=== PATIENT | female | born 2000 | race Caucasian/White ===

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

== ENCOUNTER → 2021-04-10 | Outpatient (REF) | payer OTHER, BC | LOC: M SFHCWAGY 10:30 | PROVIDERS: ATTEND Advanced Practice Midwife | DX: Z01.419 Encounter for gynecological examination (general) (routine) without abnormal findings (principal); Z12.4 Encounter for screening for malignant neoplasm of cervix ==

== ENCOUNTER → 2022-11-12 | Outpatient (CLI) | payer OTHER | LOC: M PLALAB 15:40 | PROVIDERS: ATTEND Advanced Practice Midwife | DX: O36.80X0 Pregnancy with inconclusive fetal viability, not applicable or unspecified (principal) ==

== ENCOUNTER → 2022-11-14 | Outpatient (CLI) | payer OTHER ==
[~2022-11-14] MED LIST: PRENTAB9 PO; VENTAER INH
== END ==
LOC: M PLALAB 15:43
PROVIDERS: ATTEND Advanced Practice Midwife
DX: O36.80X0 Pregnancy with inconclusive fetal viability, not applicable or unspecified (principal)

== ENCOUNTER 2022-11-18 08:35 | Emergency (ER) | payer OTHER ==
[~2022-11-18] VITALS: Ht 157.5 cm; Wt 91.4 kg
[2022-11-18] MEDS ORDERED: VENTAER INH (08:43)
[2022-11-18] MEDS ORDERED: PRENTAB9 PO (08:43)
[2022-11-18 10:21] LABS: HEMATOCRIT 40.3 % (36.0-47.0); HEMOGLOBIN 13.9 g/dl (12.0-15.5); MEAN CORPUSCULAR HEMOGLOBIN 32.9 pg (27.0-33.0); MEAN CORPUSCULAR HGB CONC 34.5 g/dl (32.0-36.5); MEAN CORPUSCULAR VOLUME 95.3 fl (80.0-96.0); PLATELET COUNT, AUTOMATED 215 10^3/uL (150-450); RED BLOOD COUNT 4.23 10^6/uL (4.00-5.40); WHITE BLOOD COUNT 10.8 10^3/uL (4.0-10.0)
[2022-11-18] MEDS ORDERED: RHOGAM 300MCG (1500IU) INJ IM ONE (12:10)
[2022-11-18 12:38] VITALS: BP 128/76
[2022-11-18 12:48] VITALS: BP 130/79
[2022-11-18 13:30] VITALS: BP 131/76
== END 2022-11-18 14:04 | disposition home or self-care (01) ==
LOC: M ED 08:35
DX: O20.0 Threatened abortion (principal)
CPT/HCPCS: 76801; 76817; 84702; 85027; 86850; 86901; 96372; 99284; J2790

== ENCOUNTER 2022-11-21 08:34 | Day surgery (SDC) | payer OTHER ==
[~2022-11-21] VITALS: Ht 157.5 cm; Wt 92.0 kg
[~2022-11-21 08:34] MED LIST changes: +DOXYCYCLINE HYCLATE 100 MG in D5W MINI-BAG PLUS 100 ML IV ONE; +LIDOCAINE 2% 100MG/5ML SDV (FOR ANES.) As Ordered ONE; +MIDAZOLAM INJ 2MG/2ML VIAL As Ordered ONE; +ONDANSETRON 4MG 2ML VIAL As Ordered ONE; +fentaNYL 100 MCG/2 ML INJECTION As Ordered ONE; +propofoL 200 MG/20 ML VIAL As Ordered ONE
[2022-11-21 09:12] LABS: HEMATOCRIT 39.8 % (36.0-47.0); HEMOGLOBIN 13.5 g/dl (12.0-15.5); MEAN CORPUSCULAR HEMOGLOBIN 32.9 pg (27.0-33.0); MEAN CORPUSCULAR HGB CONC 33.9 g/dl (32.0-36.5); MEAN CORPUSCULAR VOLUME 97.1 fl (80.0-96.0); PLATELET COUNT, AUTOMATED 201 10^3/uL (150-450); WHITE BLOOD COUNT 9.7 10^3/uL (4.0-10.0)
[2022-11-21] MEDS ORDERED: DOXYCYCLINE HYCLATE 200 MG in D5W MINI-BAG PLUS 100 ML IV ONE (09:25)
[2022-11-21] MEDS ORDERED: LIDOCAINE 1% SDV 5ML VIAL SC PRN (09:30)
[2022-11-21] MEDS ORDERED: KETOROLAC 60MG 2ML VIAL As Ordered ONE (09:44)
[2022-11-21] MEDS ORDERED: ACETAMINOPHEN 1000MG 100ML IV BAG As Ordered ONE (09:44)
[2022-11-21] MEDS ORDERED: BUPIVACAINE HCL 0.25% 30ML VIAL As Ordered ONE (10:12)
[2022-11-21] MEDS ORDERED: ESMOLOL INJ 100MG/10ML VIAL As Ordered ONE (10:30)
[2022-11-21] MEDS ORDERED: HYDROMORPHONE HCL 0.5 MG/ 0.5 ML SYRINGE IV PRN (10:40)
[2022-11-21] MEDS ORDERED: METOCLOPRAMIDE INJ 10MG/2ML VIAL IV PRN (10:40)
[2022-11-21] MEDS ORDERED: fentaNYL 100 MCG/2 ML INJECTION IV PRN (10:40)
[2022-11-21] MEDS ORDERED: ONDANSETRON 4MG 2ML VIAL IV PRN (10:40)
[2022-11-21] MEDS ORDERED: LR 1,000 ML IV SCH (10:40)
[2022-11-21] MEDS ORDERED: oxyCODONE 5MG TAB PO PRN (10:40)
[2022-11-21] MEDS ORDERED: IBUP1TAB7 PO (10:54)
[2022-11-21] MEDS ORDERED: PROMETHAZINE 25MG/ML 1ML VIAL IV PRN (11:55)
[2022-11-21 12:36] VITALS: BP 116/70
== END 2022-11-21 12:52 | disposition home or self-care (01) ==
LOC: M SDC 08:34
PROVIDERS: ATTEND Obstetrics & Gynecology
DX: O02.1 Missed abortion (principal); J45.909 Unspecified asthma, uncomplicated; Z79.51 Long term (current) use of inhaled steroids; Z79.899 Other long term (current) drug therapy
CPT/HCPCS: 36415; 59820; 85027; 86850; 86870; 86900; 86901; 88305; J0131; J1100; J1885; J2250; J2405; J2550; J2765; J3010; S0020

== ENCOUNTER → 2024-12-16 | Outpatient (CLI) | payer BC ==
[~2024-12-16] MED LIST changes: -DOXYCYCLINE HYCLATE 100 MG in D5W MINI-BAG PLUS 100 ML IV ONE; +IBUP1TAB7 PO; -LIDOCAINE 2% 100MG/5ML SDV (FOR ANES.) As Ordered ONE; -MIDAZOLAM INJ 2MG/2ML VIAL As Ordered ONE; -ONDANSETRON 4MG 2ML VIAL As Ordered ONE; -fentaNYL 100 MCG/2 ML INJECTION As Ordered ONE; -propofoL 200 MG/20 ML VIAL As Ordered ONE
== END ==
LOC: M PLALAB 08:32
PROVIDERS: ATTEND Specialist
DX: N92.6 Irregular menstruation, unspecified (principal)

== ENCOUNTER → 2024-12-18 | Outpatient (CLI) | payer BC | LOC: M LAB 08:46 | PROVIDERS: ATTEND Specialist | DX: N92.6 Irregular menstruation, unspecified (principal) ==

== ENCOUNTER → 2024-12-28 | Outpatient (REF) | payer BC | LOC: M PLALAB 08:53 | PROVIDERS: ATTEND Obstetrics & Gynecology | DX: Z34.80 Encounter for supervision of other normal pregnancy, unspecified trimester (principal) ==

== ENCOUNTER → 2025-03-24 | Outpatient (CLI) | payer BC | LOC: M WHC 13:25 | PROVIDERS: ATTEND Obstetrics & Gynecology | DX: Z34.92 Encounter for supervision of normal pregnancy, unspecified, second trimester (principal) ==

== ENCOUNTER 2025-04-24 11:56 | Emergency (ER) | payer BC ==
[2025-04-24] MEDS ORDERED: TUMS750C5 PO (12:32)
[2025-04-24] MEDS ORDERED: METR-265 PO (13:56)
== END 2025-04-24 11:59 | disposition admitted as inpatient to this hospital (09) ==
LOC: M ED 11:56
DX: Z53.21 Procedure and treatment not carried out due to patient leaving prior to being seen by health care provider (principal)

== ENCOUNTER 2025-04-24 12:08 | Outpatient (CLI) | payer BC ==
[~2025-04-24] VITALS: Ht 157.5 cm; Wt 99.7 kg
[2025-04-24 12:29] VITALS: BP 124/69
[2025-04-24] MEDS ORDERED: TUMS750C5 PO (12:32)
[2025-04-24] MEDS ORDERED: HOME MED LIST COMPLETE! XX SCH (12:35)
[2025-04-24] MEDS: FLUCONAZOLE 50 MG TABLET PO ONE (13:37)
[2025-04-24] MEDS ORDERED: METR-265 PO (13:56)
== END 2025-04-24 14:00 | disposition home or self-care (01) ==
LOC: M LDO 12:08
PROVIDERS: ATTEND Advanced Practice Midwife
DX: O23.592 Infection of other part of genital tract in pregnancy, second trimester (principal); O32.2XX0 Maternal care for transverse and oblique lie, not applicable or unspecified; O99.212 Obesity complicating pregnancy, second trimester; B37.9 Candidiasis, unspecified; E66.9 Obesity, unspecified; Z3A.25 25 weeks gestation of pregnancy
CPT/HCPCS: 59025; 76815; 76820; 87070; G0463

== ENCOUNTER → 2025-05-16 | Outpatient (CLI) | payer BC ==
[~2025-05-16] MED LIST changes: +METR-265 PO; +TUMS750C5 PO
[2025-05-16 14:01] LABS: GLUCOSE CHALLENGE TEST 1 HOUR 92 MG/DL (LESS THAN 140)
[2025-05-16 14:05] LABS: PLATELET COUNT, AUTOMATED 166 10^3/uL (150-450)
[2025-05-16 14:36] LABS: HIV 1&2 SCREEN NEGATIVE (NEGATIVE)
[2025-05-16 14:44] LABS: HEPATITIS C VIRUS ABY INDEX 0.02 INDEX (<0.8)
[2025-05-16 14:51] LABS: Trichomonas vaginalis (AMP) NOT DETECTED (NEGATIVE)
[2025-05-16 15:15] LABS: GC DNA AMPLIFICATION NEGATIVE (NEGATIVE)
== END ==
LOC: M PLALAB 09:12
PROVIDERS: ATTEND Obstetrics & Gynecology
DX: Z34.80 Encounter for supervision of other normal pregnancy, unspecified trimester (principal); Z3A.00 Weeks of gestation of pregnancy not specified
CPT/HCPCS: 36415; 82950; 85027; 86780; 86803; 86850; 86900; 86901; 87389; 87661; 87810; 87850; J2790

== ENCOUNTER → 2025-07-11 | Outpatient (REF) | payer BC | LOC: M SFHCWAGY 10:25 | PROVIDERS: ATTEND Advanced Practice Midwife | DX: Z34.03 Encounter for supervision of normal first pregnancy, third trimester (principal); Z3A.36 36 weeks gestation of pregnancy ==

== ENCOUNTER → 2025-07-18 | Outpatient (CLI) | payer BC | LOC: M WHC 07:23 | PROVIDERS: ATTEND Advanced Practice Midwife | DX: Z34.83 Encounter for supervision of other normal pregnancy, third trimester (principal) ==

== ENCOUNTER 2025-08-07 12:44 | Inpatient (IN) | payer BC ==
[2025-08-07] VITALS (9 sets, daily range): BP systolic 117–141; BP diastolic 66–92
[~2025-08-07] VITALS: Ht 157.5 cm; Wt 109.0 kg
[2025-08-07] MEDS ORDERED: OXYTOCIN DRIP 30 UNITS in IV 1 EA IV PRN (15:05)
[2025-08-07] MEDS ORDERED: METHYLERGONOVINE MALEATE 0.2 MG/ML 1 ML VIAL IM PRN (15:05)
[2025-08-07] MEDS ORDERED: OXYTOCIN INJ 10UNITS/ML 1ML VIAL IM PRN (15:05)
[2025-08-07] MEDS ORDERED: CARBOPROST TROMETHAMINE 250 MCG/ML AMP IM PRN (15:05)
[2025-08-07] MEDS ORDERED: LIDOCAINE 1% MDV 20 ML VIAL INFIL PRN (15:05)
[2025-08-07] MEDS: miSOPROStol 50 MCG 1/2 TABLET PO SCH (15:13)
[2025-08-07 16:01] LABS: PLATELET COUNT, AUTOMATED 176 10^3/uL (150-450)
[2025-08-07] MEDS: LR 1,000 ML IV SCH (23:59)
[2025-08-07] MEDS: OXYTOCIN DRIP 30 UNITS in IV 1 EA IV SCH (23:59)
[2025-08-08] VITALS (74 sets, daily range): BP systolic 99–155; BP diastolic 51–88; O2SAT 97
[2025-08-08] MEDS ORDERED: diphenhydrAMINE 50 MG/ML VIAL IV PRN (04:35)
[2025-08-08] MEDS ORDERED: NALOXONE INJ 0.4 MG/1 ML VIAL IV PRN (04:35)
[2025-08-08] MEDS ORDERED: EPIDURAL/PCA KEYS XX PRN (04:35)
[2025-08-08] MEDS: FENTANYL/ROPIVACAINE/NACL BAG 100 ML EPIDURAL SCH (05:05)
[2025-08-08] MEDS: ONDANSETRON 4MG/2ML VIAL IV PRN (07:03)
[2025-08-08] MEDS: LR 500 ML IV PRN (09:08)
[2025-08-08] MEDS: TRANEXAMIC ACID INJection 1,000 MG in NS 100 ML IV PRN (16:27)
[2025-08-08] MEDS ORDERED: METHYLERGONOVINE MALEATE 0.2 MG TAB PO PRN (18:05)
[2025-08-08] MEDS ORDERED: ACETAMINOPHEN 325 MG TAB PO PRN (18:05)
[2025-08-08] MEDS ORDERED: IBUPROFEN 600 MG TAB PO PRN (18:05)
[2025-08-08] MEDS: IBUPROFEN 800 MG TAB PO PRN (19:13)
[2025-08-08] MEDS: DIBUCAINE 1% OINTMENT 30 GM TOP PRN (21:20)
[2025-08-08] MEDS: ACETAMINOPHEN 500 MG TAB PO PRN (21:21)
[2025-08-09 04:42] LABS: HEPATITIS C VIRUS ABY INDEX 0.04 INDEX (<0.8)
[2025-08-09 06:00] VITALS: BP 110/69; O2SAT 98
[2025-08-09] MEDS: PRENATAL VITAMINS CHEWABLE TABLET PO SCH (08:23)
[2025-08-09] MEDS: RHOGAM 300MCG (1500IU) INJ IM SCH (11:25)
[2025-08-09 18:00] VITALS: BP 115/60; O2SAT 99
[2025-08-10] MEDS: MEASLES,MUMPS,RUBELLA VACCINE INJ (MMR-II) SC.IMMUN ONE (05:58)
[2025-08-10] MEDS ORDERED: IBUP600T42 PO (08:59)
[2025-08-10] MEDS ORDERED: ACET-907 PO (08:59)
== END 2025-08-10 13:47 | disposition home or self-care (01) | DRG 560 ==
LOC: M LDI 12:44 → M OBS 08-08 18:51
PROVIDERS: ADMIT Advanced Practice Midwife; ATTEND Advanced Practice Midwife
PROC: 3E0P7GC Introduction of Other Therapeutic Substance into Female Reproductive, Via Natural or Artificial Opening (ICD-10-PCS; 2025-08-07)
PROC: 10E0XZZ Delivery of Products of Conception, External Approach (ICD-10-PCS; principal; 2025-08-08)
PROC: 0HQ9XZZ Repair Perineum Skin, External Approach (ICD-10-PCS; 2025-08-08)
DX: O36.63X0 Maternal care for excessive fetal growth, third trimester, not applicable or unspecified (principal); O69.81X0 Labor and delivery complicated by cord around neck, without compression, not applicable or unspecified; Z3A.40 40 weeks gestation of pregnancy; O70.0 First degree perineal laceration during delivery; Z37.0 Single live birth